=== PATIENT | male | born 1995 | race African-American/Black ===

== ENCOUNTER 2017-05-05 15:31 | Emergency (ER) | payer OTHER ==
[~2017-05-05] VITALS: Ht 177.8 cm; Wt 75.0 kg
[~2017-05-05 15:31] MED LIST: DIAZ5TAB PO
[2017-05-05 15:42] VITALS: BP 146/86
[2017-05-05] MEDS ORDERED: METH4TAB3 PO (16:37)
[2017-05-05] MEDS ORDERED: LIDO20SO16 PO (16:37)
== END 2017-05-05 16:51 | disposition home or self-care (01) ==
LOC: ER 15:32
DX: J02.9 Acute pharyngitis, unspecified (principal); F12.10 Cannabis abuse, uncomplicated
CPT/HCPCS: 87081; 87880; 99284

== ENCOUNTER 2017-09-15 01:22 | Emergency (ER) | payer MEDICAID ==
[~2017-09-15] VITALS: Ht 175.3 cm; Wt 70.0 kg
[~2017-09-15 01:22] MED LIST changes: +LIDO20SO16 PO; +METH4TAB3 PO
[2017-09-15 01:37] VITALS: BP 144/88
[2017-09-15] MEDS ORDERED: LORazepam 1 MG tablet PO ONE (01:45)
== END 2017-09-15 02:03 | disposition home or self-care (01) ==
LOC: ER 01:22
DX: T78.1XXA Other adverse food reactions, not elsewhere classified, initial encounter (principal); F41.9 Anxiety disorder, unspecified; F12.90 Cannabis use, unspecified, uncomplicated; Z79.899 Other long term (current) drug therapy; X58.XXXA Exposure to other specified factors, initial encounter
CPT/HCPCS: 99284

== ENCOUNTER 2018-03-22 03:25 | Emergency (ER) | payer MEDICAID ==
[~2018-03-22] VITALS: Ht 177.8 cm; Wt 76.5 kg
[2018-03-22] VITALS (15 sets, daily range): BP systolic 117–149; BP diastolic 55–89
[2018-03-22] MEDS ORDERED: HYDROcodone/acetaminophen 10/325mg tab PO ONE (03:45)
[2018-03-22] MEDS ORDERED: etomidate 2mg/ml inj. IV ONE (03:55)
[2018-03-22] MEDS ORDERED: propofol 1000mg/100ml bottle 100 ML IV ONE (04:23)
[2018-03-22] MEDS ORDERED: fentaNYL/PF 50MCG/1 ML 2ML syringe IV ONE (05:10)
--- NOTE | 2018-03-22 05:42 | NUR ---
MODERATION SEDATION PERFORMED DOCUMENTED, UPON FIRST ATTEMPT TO SEDATE PATIENT, IT WAS OBSERVED THAT THE IV INFILTRATED IN HIS R AC. NS INFUSION STOPPED AND DISCONNECT. PT HAD NOTICABLE SWELLING TO R BICEP AND REPORTED PAIN. RADIAL PULSES PRESENT, STRONG. PHARMACY CONSULTED ABOUT PROPOFOL INFILTRATED AND SAID IT WAS BENIGN. APPROX 20 MINUTES AFTER NS DRIP WAS STOPPED THE BICEP NO LONGER APPEARED SWOLLEN AND FELT SOFT TO THE TOUCH, PT REPORTED RELIEF OF PAIN. IV INITIATED IN ALTERNATIVE IV SIGHT, PROCEDURE RESTARTED DOCUMENTED. PT WAS LIGHTLY SEDATED BUT CONTINUED TO WAKE UP WHILE ATTEMPTING TO RELOCATE ELBOW. MD UNABLE TO PLACE ELBOW AND THE PROCEDURE WAS STOPPED. MD TO CONSULT WITH ORTHO SURGEON FOR POTENTIAL TRIP TO OR FOR CORRECT PLACEMENT AND FURTHER SEDATION NEEDED.
[2018-03-22] MEDS ORDERED: HYDROmorphone 1 mg/ml syringe IV STA (09:15)
--- NOTE | 2018-03-22 09:20 | NUR ---
Patient C/O of increased pain. Informed ER MD.
--- NOTE | 2018-03-22 09:48 | NUR ---
Call to patient mother Marcia for update and left message.
[2018-03-22] MEDS ORDERED: midazolam 2 mg/2 ml injection ONE (12:21)
[2018-03-22] MEDS ORDERED: dexamethasone sod phosphate 4mg/ml inj. ONE (12:22)
[2018-03-22] MEDS ORDERED: propofol inj 20 ML IV ONE (12:22)
[2018-03-22] MEDS ORDERED: LIDOcaine 2% (20mg/ml) 5ml vial ONE (12:22)
[2018-03-22] MEDS ORDERED: meperidine/PF 50mg/ml syringe ONE (12:22)
[2018-03-22] MEDS ORDERED: ondansetron/PF 4mg/2ml inj ONE (12:22)
[2018-03-22] MEDS ORDERED: ringers solution, lacted 1,000 ML IV SCH (12:32)
[2018-03-22] MEDS ORDERED: fentaNYL/PF 50MCG/1 ML 2ML syringe IV PRN ×2 (12:35)
[2018-03-22] MEDS ORDERED: hydrALAZINE 20mg/ml inj. IV PRN (12:35)
[2018-03-22] MEDS ORDERED: ondansetron/PF 4mg/2ml inj IV PRN (12:35)
[2018-03-22] MEDS ORDERED: morphine 4 MG/ML inj SYRINge IV PRN ×2 (12:35)
[2018-03-22] MEDS ORDERED: labetalol 20mg/4ml (5mg/ml) syringe IV PRN (12:35)
[2018-03-22] MEDS ORDERED: sevoflurane 250ml liquid IH ONE (12:38)
--- NOTE | 2018-03-22 13:01 | NUR ---
Received from OR via [facility] , accompanied by Anesthesiologist DR MONTOYA and report given by Anesthesiolgist. PT ASLEEP. SLING TO LEFT ARM, CAST TO LEFT ARM CDI. FINGERS TO LEFT HAND HAVE GOOD CSM. IV TO RIGHT FOOT PATENT, INFUSING LR.
[2018-03-22] MEDS ORDERED: naloxone 0.4 mg/ml inj ONE (13:52)
--- NOTE | 2018-03-22 14:01 | NUR ---
PT REC'D TOTAL OF 0.2MG OF NARCAN IVP. PT NOW AWAKE, ORAL AIRWAY OUT. VSS. PT DENIES NAUSEA AND PAIN. ALERT AND ORIENTED.
--- NOTE | 2018-03-22 15:01 | NUR ---
pt was transferred to [facility] via [facility], pt alert and oriented when awake. Falls asleep often. Denies pain and nausea. Ice to left upper arm, sling in place, splint remains CDI. belonging bag x 2 below rmcdonough and to pt room upon transfer. Report given to Mary Ann who assumed care of pt. Mom w/ pt upon transfer to room.
--- NOTE | 2018-03-22 15:15 | NUR ---
PATIENT ARRIVED TO ACCE UNIT AWAKE, ALERT, ORIENTED X4, CALM, AND DENIES ANY PAIN OR DISCOMFORT AT THIS TIME. LEFT ARM SLING IN PLACE AND PATIENT HOOKED UP TO BEDSIDE MONITOR. VITAL SIGNS STABLE. PATIENT SAYS HE IS HUNGRY SO REGULAR TRAY ORDERED. PATIENT'S FAMILY MEMBER AT BEDSIDE. WILL CONTINUE TO MONITOR.
[2018-03-22] MEDS ORDERED: NO HOME MEDS (17:38)
--- NOTE | 2018-03-22 18:00 | NUR ---
Patient in room . I have received report from MERLE Reese and had the opportunity to ask questions and assume patient care.
--- NOTE | 2018-03-22 18:40 | NUR ---
Patient discharged home with his mother. All discharge instructions given to the patient and all questions answered until the patient stated he had understanding and no other questions. Patient was in a stable condition when he was discharged. Patient left the floor in a wheelchair.
== END 2018-03-22 19:35 | disposition home or self-care (01) ==
LOC: ER 03:26
DX: S53.195A Other dislocation of left ulnohumeral joint, initial encounter (principal); F12.90 Cannabis use, unspecified, uncomplicated; W19.XXXA Unspecified fall, initial encounter; Y93.89 Activity, other specified; Y92.89 Other specified places as the place of occurrence of the external cause; Y99.9 Unspecified external cause status
CPT/HCPCS: 24605; 73070; 73090; 76000; 94760; 96374; 96375; 99285; J1100; J1170; J2001; J2175; J2250; J2270; J2310; J2405; J2704; J3010; J7120; A4565; A6449; A7000; J3490

== ENCOUNTER 2019-01-12 12:20 | Emergency (ER) | payer MEDICAID ==
[~2019-01-12] VITALS: Ht 177.8 cm; Wt 70.0 kg
[~2019-01-12 12:20] MED LIST changes: -DIAZ5TAB PO; -LIDO20SO16 PO; -METH4TAB3 PO; +NO HOME MEDS
[2019-01-12 13:39] LABS: BASOPHILS % (AUTO) 0.5 % (0-1); EOSINOPHILS # (AUTO) 0.4 X10'3 (0-0.9); EOSINOPHILS % (AUTO) 5.2 % (0-6); HEMATOCRIT 40.2 % (42.0-52.0); HEMOGLOBIN 13.2 g/dl (14.0-17.9); LYMPHOCYTES # (AUTO) 1.7 X10'3 (1.1-4.8); LYMPHOCYTES % (AUTO) 20.4 % (21-51); MEAN CORPUSCULAR HEMOGLOBIN 26.3 PG (27.0-31.0); MEAN CORPUSCULAR VOLUME 79.6 FL (78-98); MEAN PLATELET VOLUME 7.3 FL (7.4-10.4); MONOCYTES # (AUTO) 0.7 X10'3 (0-0.9); MONOCYTES % (AUTO) 8.3 % (2-12); NEUTROPHILS # (AUTO) 5.3 X10'3 (1.8-7.7); NEUTROPHILS % (AUTO) 65.6 % (42-75); PLATELET COUNT 276 X10'3 (140-440); RED BLOOD COUNT 5.05 X10'6 (4.70-6.10); RED CELL DISTRIBUTION WIDTH 19.7 % (11.5-14.5); WHITE BLOOD COUNT 8.1 X10'3 (4.5-11.0)
[2019-01-12 13:52] LABS: ANION GAP 10 (8-16); BLOOD UREA NITROGEN 9 MG/DL (7-18); CHLORIDE 103 MMOL/L (99-107); CREATININE 0.61 MG/DL (0.60-1.10); GLUCOSE 111 MG/DL (70-104); POTASSIUM 3.4 MMOL/L (3.5-5.1); SODIUM 140 MMOL/L (135-145)
[2019-01-12 13:53] LABS: ALANINE AMINOTRANSFERASE 19 U/L (12-78); ALBUMIN 3.4 G/DL (3.4-5.0); ALBUMIN/GLOBULIN RATIO 0.9 (1.1-1.5); ALKALINE PHOSPHATASE 92 IU/L (46-116); ASPARTATE AMINO TRANSFERASE 14 U/L (10-37); BILIRUBIN,TOTAL 0.2 MG/DL (0.1-1.0); BUN/CREATININE RATIO 14.8 (5.4-32.0); CALCIUM 9.2 MG/DL (8.5-10.1); TOTAL PROTEIN 7.2 G/DL (6.4-8.2); eGFR > 90 ML/MIN
[2019-01-12 13:56] LABS: TROPONIN I < 0.04 NG/ML (0.0-0.05)
[2019-01-12 13:58] LABS: PLATELET ESTIMATE NORMAL
[2019-01-12 13:59] LABS: ANISOCYTOSIS 2+; HYPOCHROMASIA 1+; MICROCYTOSIS 1+
[2019-01-12] MEDS ORDERED: morphine 2 MG/ML inj. syringe IV ONE (15:05)
[2019-01-12] MEDS ORDERED: ibuprofen 200mg tablet PO ONE (16:40)
[2019-01-12 16:48] VITALS: BP 154/76
== END 2019-01-12 16:51 | disposition home or self-care (01) ==
LOC: ER 12:20
DX: R07.89 Other chest pain (principal); F12.90 Cannabis use, unspecified, uncomplicated
CPT/HCPCS: 36415; 71045; 71275; 80053; 84484; 85025; 93005; 96374; 99284; J2270

== ENCOUNTER 2019-02-01 13:23 | Emergency (ER) | payer MEDICAID ==
[~2019-02-01] VITALS: Ht 177.8 cm; Wt 68.0 kg
[2019-02-01] MEDS ORDERED: ipratropium/albuterol 3ml nebule NEB ONE (14:55)
[2019-02-01 16:58] VITALS: BP 118/64
== END 2019-02-02 14:42 | disposition home or self-care (01) ==
LOC: ER 13:23
DX: J96.10 Chronic respiratory failure, unspecified whether with hypoxia or hypercapnia (principal); G82.50 Quadriplegia, unspecified; F41.9 Anxiety disorder, unspecified; F10.99 Alcohol use, unspecified with unspecified alcohol-induced disorder; F12.90 Cannabis use, unspecified, uncomplicated; Y90.9 Presence of alcohol in blood, level not specified
CPT/HCPCS: 71045; 94640; 94760; 99284

== ENCOUNTER 2019-10-30 00:35 | Emergency (ER) | payer MEDICAID ==
[~2019-10-30] VITALS: Ht 177.8 cm; Wt 63.6 kg
[2019-10-30 00:57] LABS: BASOPHILS # (AUTO) 0.1 X10'3 (0-0.2); BASOPHILS % (AUTO) 0.9 % (0-1); EOSINOPHILS # (AUTO) 0.5 X10'3 (0-0.9); EOSINOPHILS % (AUTO) 7.3 % (0-6); HEMATOCRIT 43.6 % (42.0-52.0); HEMOGLOBIN 14.5 g/dl (14.0-17.9); LYMPHOCYTES # (AUTO) 2.1 X10'3 (1.1-4.8); LYMPHOCYTES % (AUTO) 29.5 % (21-51); MEAN CORPUSCULAR HEMOGLOBIN 31.1 PG (27.0-31.0); MEAN CORPUSCULAR HGB CONC 33.3 g/dL (33.0-36.5); MEAN CORPUSCULAR VOLUME 93.4 FL (78-98); MEAN PLATELET VOLUME 7.5 FL (7.4-10.4); MONOCYTES # (AUTO) 0.7 X10'3 (0-0.9); MONOCYTES % (AUTO) 9.8 % (2-12); NEUTROPHILS # (AUTO) 3.7 X10'3 (1.8-7.7); NEUTROPHILS % (AUTO) 52.5 % (42-75); PLATELET COUNT 266 X10'3 (140-440); RED BLOOD COUNT 4.67 X10'6 (4.70-6.10); RED CELL DISTRIBUTION WIDTH 13.7 % (11.5-14.5); WHITE BLOOD COUNT 7.1 X10'3 (4.5-11.0)
[2019-10-30 01:21] LABS: ALANINE AMINOTRANSFERASE 21 U/L (12-78); ALBUMIN 3.7 G/DL (3.4-5.0); ALKALINE PHOSPHATASE 83 IU/L (46-116); ANION GAP 6 (8-16); ASPARTATE AMINO TRANSFERASE 14 U/L (10-37); BILIRUBIN,TOTAL 0.3 MG/DL (0.1-1.0); BLOOD UREA NITROGEN 9 MG/DL (7-18); BUN/CREATININE RATIO 10.7 (5.4-32.0); CALCIUM 9.2 MG/DL (8.5-10.1); CHLORIDE 104 MMOL/L (99-107); CREATININE 0.84 MG/DL (0.60-1.10); GLUCOSE 86 MG/DL (70-104); POTASSIUM 3.9 MMOL/L (3.5-5.1); SODIUM 138 MMOL/L (135-145); TOTAL CARBON DIOXIDE 27.7 MMOL/L (24-32); TOTAL PROTEIN 7.3 G/DL (6.4-8.2); eGFR > 90 ML/MIN
[2019-10-30 03:31] VITALS: BP 106/68
== END 2019-10-30 03:36 | disposition home or self-care (01) ==
LOC: ER 00:36
DX: R07.89 Other chest pain (principal); F41.9 Anxiety disorder, unspecified; F12.90 Cannabis use, unspecified, uncomplicated; Z88.5 Allergy status to narcotic agent
CPT/HCPCS: 36415; 71045; 80053; 83880; 84484; 85025; 93005; 99285

== ENCOUNTER 2019-11-23 23:56 | Emergency (ER) | payer MEDICAID ==
[~2019-11-23] VITALS: Ht 177.8 cm; Wt 65.0 kg
[2019-11-24] MEDS ORDERED: aspirin 81mg tab.chew PO ONE (00:15)
[2019-11-24] MEDS ORDERED: nitroGLYCERIN 0.4mg SUBLingual tab SL PRN (00:15)
[2019-11-24 00:23] LABS: BASOPHILS % (AUTO) 0.6 % (0-1); EOSINOPHILS # (AUTO) 0.5 X10'3 (0-0.9); EOSINOPHILS % (AUTO) 9.8 % (0-6); HEMATOCRIT 43.6 % (42.0-52.0); HEMOGLOBIN 14.7 g/dl (14.0-17.9); LYMPHOCYTES % (AUTO) 35.9 % (21-51); MEAN CORPUSCULAR HEMOGLOBIN 31.4 PG (27.0-31.0); MEAN CORPUSCULAR HGB CONC 33.8 g/dL (33.0-36.5); MEAN PLATELET VOLUME 7.6 FL (7.4-10.4); MONOCYTES # (AUTO) 0.4 X10'3 (0-0.9); MONOCYTES % (AUTO) 7.6 % (2-12); NEUTROPHILS # (AUTO) 2.5 X10'3 (1.8-7.7); NEUTROPHILS % (AUTO) 46.1 % (42-75); PLATELET COUNT 213 X10'3 (140-440); RED BLOOD COUNT 4.68 X10'6 (4.70-6.10); RED CELL DISTRIBUTION WIDTH 13.9 % (11.5-14.5); WHITE BLOOD COUNT 5.5 X10'3 (4.5-11.0)
[2019-11-24 00:33] LABS: ALANINE AMINOTRANSFERASE 17 U/L (12-78); ALBUMIN 3.8 G/DL (3.4-5.0); ALBUMIN/GLOBULIN RATIO 1.1 (1.1-1.5); ALKALINE PHOSPHATASE 82 IU/L (46-116); ANION GAP 5 (8-16); ASPARTATE AMINO TRANSFERASE 16 U/L (10-37); BILIRUBIN,TOTAL 0.4 MG/DL (0.1-1.0); BLOOD UREA NITROGEN 8 MG/DL (7-18); BUN/CREATININE RATIO 10.4 (5.4-32.0); CALCIUM 9.6 MG/DL (8.5-10.1); CHLORIDE 103 MMOL/L (99-107); CREATININE 0.77 MG/DL (0.60-1.10); GLUCOSE 91 MG/DL (70-104); POTASSIUM 3.9 MMOL/L (3.5-5.1); SODIUM 138 MMOL/L (135-145); TOTAL CARBON DIOXIDE 30.5 MMOL/L (24-32); TOTAL PROTEIN 7.2 G/DL (6.4-8.2); eGFR > 90 ML/MIN
[2019-11-24 01:19] LABS: D-DIMER 0.68 MG/L FEU (0-0.50)
[2019-11-24] MEDS ORDERED: iohexol 350MG/ML 100ml bottle IV ONE (01:46)
--- NOTE | 2019-11-24 06:27 | NUR ---
received patient on bed awake,no reported discomfort.Awaiting transport.
--- NOTE | 2019-11-24 08:55 | NUR ---
[facility] still unable to transport patient home.We will try and call them again later.
--- NOTE | 2019-11-24 09:45 | NUR ---
patient reports he is wet and that he needed to be turned,RN then offered to change and turn him.Patient refused to be changed multiple times.
[2019-11-24] MEDS ORDERED: ketorolac tromethamine 15mg/ml inj. IV ONE (10:00)
--- NOTE | 2019-11-24 10:15 | NUR ---
requested pain med prior to dc.Spoke to Dr. jameson ordered toradol.
--- NOTE | 2019-11-24 10:15 | NUR ---
patient requested multiple medications he takes at home and that "he cannot wait until [facility] takes him home.Spoke to Issa Gill again,agreed to give meds as requested by patient.
--- NOTE | 2019-11-24 10:15 | NUR ---
discussed risk of skin breakdown if left on a wet sheet,patient finally agreed to be changed.
--- NOTE | 2019-11-24 10:21 | NUR ---
Awating for [facility] to transport patient home.
[2019-11-24] MEDS ORDERED: bisacodyl 5mg tablet.DR PO STA (10:42)
[2019-11-24] MEDS ORDERED: gabapentin 100mg capsule PO STA (10:42)
[2019-11-24] MEDS ORDERED: baclofen 10mg tablet PO STA (10:42)
[2019-11-24] MEDS ORDERED: sennosides/docusate sodium tablet PO STA (10:42)
--- NOTE | 2019-11-24 10:58 | NUR ---
[facility] at bedside.
[2019-11-24 11:23] VITALS: BP 96/66
== END 2019-11-24 11:26 | disposition home or self-care (01) ==
LOC: ER 23:56
DX: R00.1 Bradycardia, unspecified (principal); R07.89 Other chest pain; F41.9 Anxiety disorder, unspecified; Z72.89 Other problems related to lifestyle; F12.90 Cannabis use, unspecified, uncomplicated; Z88.8 Allergy status to other drugs, medicaments and biological substances
CPT/HCPCS: 36415; 71045; 71275; 80053; 83880; 84484; 85025; 85379; 93005; 96374; 99285; J1885; Q9967

== ENCOUNTER 2020-03-26 19:31 | Emergency (ER) | payer MEDICAID ==
[~2020-03-26] VITALS: Ht 177.8 cm; Wt 70.5 kg
[2020-03-26] MEDS ORDERED: HYDR-3686 PO (20:17)
[2020-03-26] MEDS ORDERED: SENN-263 PO (20:17)
[2020-03-26] MEDS ORDERED: DOCU-338 PO (20:17)
[2020-03-26] MEDS ORDERED: BACL20TA7 PO (20:17)
[2020-03-26] MEDS ORDERED: MIDO10TA PO (20:17)
[2020-03-26] MEDS ORDERED: CHOL100046 PO (20:17)
[2020-03-26] MEDS ORDERED: GABA-530 PO (20:17)
[2020-03-26] MEDS ORDERED: CALC-1276 PO (20:17)
[2020-03-26] MEDS ORDERED: acetaminophen 325mg tablet PO ONE (20:45)
[2020-03-26] MEDS ORDERED: ketorolac trometh. 30mg/ml inj. IM ONE (20:45)
[2020-03-26] MEDS ORDERED: ALBE200T2 PO (21:41)
--- NOTE | 2020-03-26 21:57 | NUR ---
pt turned, pillows placed for support, assisted with urinal, resting comfortably awaiting [facility] transport home.
[2020-03-27] MEDS ORDERED: HYDROcodone/acetaminophen 5mg/325mg tablet PO ONE (02:40)
[2020-03-27] MEDS ORDERED: ondansetron 4mg rapidly disintigrating tab PO ONE (02:40)
--- NOTE | 2020-03-27 05:06 | NUR ---
PT RESTING IN BED COMFORTABLY
[2020-03-27 05:21] VITALS: BP 106/54
== END 2020-03-27 05:25 | disposition home or self-care (01) ==
LOC: ER 19:31
DX: K62.89 Other specified diseases of anus and rectum (principal); K62.5 Hemorrhage of anus and rectum; R11.0 Nausea; I10 Essential (primary) hypertension; F12.90 Cannabis use, unspecified, uncomplicated; Z72.89 Other problems related to lifestyle; Z88.8 Allergy status to other drugs, medicaments and biological substances; Z79.899 Other long term (current) drug therapy
CPT/HCPCS: 96372; 99284; J1885

== ENCOUNTER 2020-03-28 20:21 | Emergency (ER) | payer MEDICAID ==
[~2020-03-28] VITALS: Ht 180.3 cm; Wt 75.0 kg
[~2020-03-28 20:21] MED LIST changes: +ALBE200T2 PO; +BACL20TA7 PO; +CALC-1276 PO; +CHOL100046 PO; +DOCU-338 PO; +GABA-530 PO; +HYDR-3686 PO; +MIDO10TA PO; -NO HOME MEDS; +SENN-263 PO
--- NOTE | 2020-03-28 20:42 | NUR ---
DR. BURNETT AT BEDSIDE VERBALIZED TO SURGERY TEACHER NOT TO DO WORK UP AND TO STAND BY FOR ORDERS IF NECESSARY, PATIENT IS CURRENTLY BEING MONITORED
[2020-03-28] MEDS ORDERED: LORazepam 1 MG tablet PO ONE (20:50)
--- NOTE | 2020-03-28 21:14 | NUR ---
PATIENT YELLING AT STAFF. REMINDED PATIENT THAT HE IS AWAITING TRANSPORTATION
--- NOTE | 2020-03-28 21:33 | NUR ---
PATIENT CONTINUOSLY SCREAMING OUT FOR A NURSE WHEN NURSE ENTERS ROOM PATIENT STAING MY FEET THEY ITCH I WANT THEM ITCHED, PATIENT IS CAPABILIE OF ITCHING FEET AND WAS POLITLY ASKED IF PATIENT COULD USE CALL [facility] INSTEAD OF CALLING OUT, OF NOW IT IS WORKING WILL CONTINUE TO MONITOR ED CN AND MD AWARE
--- NOTE | 2020-03-28 22:49 | NUR ---
PATIENT IN ROOM SUPINE RR EVEN UN LABORED NO OBSERVABLE S/S OF ACUTE STRESS AT THIS TIME PATIENT IS AOX4 AND IS STILL UN COOPERATIVE.
[2020-03-28 23:03] VITALS: BP 110/42
== END 2020-03-28 23:09 | disposition home or self-care (01) ==
LOC: ER 20:22
DX: R19.5 Other fecal abnormalities (principal); G82.20 Paraplegia, unspecified; F12.90 Cannabis use, unspecified, uncomplicated; Z72.89 Other problems related to lifestyle; Z79.899 Other long term (current) drug therapy
CPT/HCPCS: 93005; 99283

== ENCOUNTER 2020-03-31 01:50 | Emergency (ER) | payer MEDICAID ==
[~2020-03-31] VITALS: Ht 177.8 cm; Wt 57.3 kg
[2020-03-31] MEDS ORDERED: ALBE200T5 PEG (02:07)
[2020-03-31] MEDS ORDERED: ketorolac tromethamine 15mg/ml inj. IM ONE (02:50)
--- NOTE | 2020-03-31 03:24 | NUR ---
[facility] HERE FOR DC TRANSPORT.
[2020-03-31 03:31] VITALS: BP 97/48
== END 2020-03-31 03:33 | disposition home or self-care (01) ==
LOC: ER 01:51
DX: T63.301A Toxic effect of unspecified spider venom, accidental (unintentional), initial encounter (principal); M79.675 Pain in left toe(s); M79.674 Pain in right toe(s); B80 Enterobiasis; G82.50 Quadriplegia, unspecified; F41.9 Anxiety disorder, unspecified; F12.90 Cannabis use, unspecified, uncomplicated; Z72.89 Other problems related to lifestyle; Z88.8 Allergy status to other drugs, medicaments and biological substances; Z79.2 Long term (current) use of antibiotics; Z79.899 Other long term (current) drug therapy; Y92.89 Other specified places as the place of occurrence of the external cause
CPT/HCPCS: 96372; 99283; J1885

== ENCOUNTER 2020-04-11 03:56 | Emergency (ER) | payer MEDICAID ==
[~2020-04-11] VITALS: Ht 177.8 cm; Wt 68.2 kg
[~2020-04-11 03:56] MED LIST changes: +ALBE200T5 PEG
[2020-04-11 04:01] VITALS: BP 123/83
--- NOTE | 2020-04-11 04:13 | NUR ---
PT REQUESTS FOR ME TO ASKE THE MD IF HE CAN GET AN XRAY "OR SOMETHING OF MY ABDOMOEN" THIS PAIN "FEELS LIKE IT IS IN MY RECTAL MUSCLES...DEEP IN MY ABDOMEN". PT STATES " I DON'T UNDERSTAND WHY THE DOCTOR IS NOT TAKING ME SERIOUSLY...THIS IS SO PAINFUL". I TOLD PT I WOUDL TELL THE MD HIS REQUESTS. PT IS POLITE AND COOPERATIVE WITH CARE. STABLE VS.
--- NOTE | 2020-04-11 04:41 | NUR ---
PT REPORTS HE IS HAVING ISSUES WITH PARASITES AND HAS A PERSCRIPTION FOR MEDICATION BUT CANNOT AFFORD IT SO HE IS DOING A NATURAL CLENSE AND EATING A SPECIAL PROTEIN AND VEGITABLE DIET. HIS STOOL HAS BEEN "STRINGY AND NOT REGULAR". HE STATES HE WOULD BE WILLING TO HAVE A COLONOSCOPY. I UPDATED HIM THAT HE IS PREPARED FOR DISCHARGE AND THE MD HAS DEEMED THAT PT NEEDS NO FURTHER TESTS OR LABS HE IS NOT EMERGENT AND WILL NEED TO F/U WITH HIS PCP. PT REPORTS HE IS HAVING TROUBLE GETTING AN APPT WITH HIS PCP. HE REPORTS HE IS FRUSTRATED THAT THE MD IS NOT DOINIG ANYTHING FURTHER. PT ASKED HOW HE WILL TRANSPORT HOME. HE REPORTS HE NEEDS TRANSPORT SERVICE AND CAN USE ONLY HIS SPECIAL WHEELCHAIR IS STTING UPRIGHT. [facility] CALLED AND THEY REORTS DUE TO A RECENT INCIDENT, PT HAS BEEN BANNED FROM THEIR TRANSPORTATION SERVICES. COMMERCIAL UNDERWRITERGIANFRANCO UPDATED.
--- NOTE | 2020-04-11 05:02 | NUR ---
MOTHER, DEE, CALLED AND REPORTS THAT THE PT REQUIRES A GURNEY TO TRANSPORT HOME.. HE DOES HAVE AN ELECTRIC WC, BUT IS WEIGHS A FEW HUNDRED POUNDS AND SHE DOES NOT HAVE A VEHICLE TO TRANSPORT HIM IN. STATES THEY HAVE USED A MEDICAL TRANSPORT SERVICE DURING THE DAYTIME IN THE PAST FOR HIM TO GO TO APPTS AND SUCH. TOOL CRIB LEAD, GIANFRANCO MENDIOLA. CALL PLACED TO JAMES. PT UPDATED.
--- NOTE | 2020-04-11 08:00 | NUR ---
RESTING ON COLBY DAS. AWAITING TRANSPORTATION HOME VIA [facility]. VOIDED PER URINAL. CALL LIGHT IN REACH.
[2020-04-11] MEDS ORDERED: sennosides 8.6mg tablet PO ONE (09:45)
[2020-04-11] MEDS ORDERED: docusate sod 100mg capsule PO ONE (09:45)
[2020-04-11] MEDS: gabapentin 100mg capsule PO SCH ×2 (10:03→13:00)
[2020-04-11] MEDS: baclofen 10mg tablet PO SCH ×2 (10:04→14:10)
--- NOTE | 2020-04-11 10:41 | NUR ---
PATIENT IS WAITING FOR TRANSPORTATION HOME PER [facility]. MORNING MEDICATIONS WERE ADMINISTERED. REPOSITIONED ON [facility]. DRANK 4 OZ CRANBERRY JUICE AND RETAINED.
--- NOTE | 2020-04-11 12:42 | NUR ---
REPOSITIONED FOR COMFORT. INCONTINENT OF STOOL. CLEANED UP AND FRESH PAD PUT UNDER PATIENT. AWAITING TRANSPORTATION TO HOME.
== END 2020-04-11 14:13 | disposition home or self-care (01) ==
LOC: ER 03:57
DX: K62.89 Other specified diseases of anus and rectum (principal); R19.7 Diarrhea, unspecified; M79.661 Pain in right lower leg; M79.662 Pain in left lower leg; K59.00 Constipation, unspecified; F12.90 Cannabis use, unspecified, uncomplicated; Z72.89 Other problems related to lifestyle; Z79.899 Other long term (current) drug therapy
CPT/HCPCS: 99284

== ENCOUNTER 2020-10-20 03:58 | Emergency (ER) | payer MEDICAID ==
[~2020-10-20] VITALS: Ht 180.3 cm; Wt 68.1 kg
[~2020-10-20 03:58] MED LIST changes: +ALBE200T10 PEG; +ALBE200T14 PO; -ALBE200T2 PO; -ALBE200T5 PEG
[2020-10-20 04:18] VITALS: BP 136/80
[2020-10-20] MEDS ORDERED: ondansetron/PF 4mg/2ml inj IV ONE (05:10)
[2020-10-20] MEDS ORDERED: morphine 4 MG/ML inj SYRINge IV ONE (05:10)
[2020-10-20] MEDS ORDERED: normal saline 1000ML IV soln IVB ONE (05:15)
--- NOTE | 2020-10-20 05:49 | NUR ---
patient given meds as ordered, see mar. patient and md has lengthy conversation. MD made patient aware that nothing is wrong except for some constipation. patient believes he has things crawling in his eyes and penis. Keeps talking in circles. hard to redirect.
[2020-10-20 06:00] LABS: ALANINE AMINOTRANSFERASE 26 U/L (12-78); ALBUMIN/GLOBULIN RATIO 1.1 (1.1-1.5); ALKALINE PHOSPHATASE 72 IU/L (46-116); ANION GAP 14 (8-16); ASPARTATE AMINO TRANSFERASE 17 U/L (10-37); BILIRUBIN,TOTAL 0.5 MG/DL (0.1-1.0); BLOOD UREA NITROGEN 14 MG/DL (7-18); BUN/CREATININE RATIO 18.9 (5.4-32.0); CALCIUM 9.6 MG/DL (8.5-10.1); CHLORIDE 104 MMOL/L (99-107); CREATININE 0.74 MG/DL (0.60-1.10); GLUCOSE 90 MG/DL (70-104); MAGNESIUM 1.7 MG/DL (1.5-2.4); POTASSIUM 3.7 MMOL/L (3.5-5.1); SODIUM 142 MMOL/L (135-145); TOTAL CARBON DIOXIDE 24.3 MMOL/L (24-32); TOTAL PROTEIN 7.6 G/DL (6.4-8.2); eGFR > 90 ML/MIN
[2020-10-20 06:03] LABS: URINE AMPHETAMINE SCREEN NEGATIVE (Neg); URINE BARBITUATE SCREEN NEGATIVE (Neg); URINE BENZODIAZEPINES SCREEN NEGATIVE (Neg); URINE CANNABINOID SCREEN POSITIVE (Neg); URINE COCAINE SCREEN NEGATIVE (Neg); URINE METHADONE SCREEN NEGATIVE (Neg); URINE OPIATE SCREEN POSITIVE (Neg); URINE PHENCYCLIDINE SCREEN NEGATIVE (Neg)
[2020-10-20 06:08] LABS: BASOPHILS # (AUTO) 0.1 X10'3 (0-0.2); EOSINOPHILS # (AUTO) 0.3 X10'3 (0-0.9); EOSINOPHILS % (AUTO) 5.2 % (0-6); HEMOGLOBIN 15.1 g/dl (14.0-17.9); LYMPHOCYTES # (AUTO) 1.7 X10'3 (1.1-4.8); LYMPHOCYTES % (AUTO) 31.1 % (21-51); MEAN CORPUSCULAR HEMOGLOBIN 30.9 PG (27.0-31.0); MEAN CORPUSCULAR HGB CONC 34.3 g/dL (33.0-36.5); MEAN CORPUSCULAR VOLUME 90.2 FL (78-98); MEAN PLATELET VOLUME 8.8 FL (7.4-10.4); MONOCYTES # (AUTO) 0.5 X10'3 (0-0.9); MONOCYTES % (AUTO) 8.8 % (2-12); NEUTROPHILS # (AUTO) 2.9 X10'3 (1.8-7.7); NEUTROPHILS % (AUTO) 53.9 % (42-75); PLATELET COUNT 204 X10'3 (140-440); RED BLOOD COUNT 4.88 X10'6 (4.70-6.10); RED CELL DISTRIBUTION WIDTH 13.4 % (11.5-14.5); WHITE BLOOD COUNT 5.4 X10'3 (4.5-11.0)
[2020-10-20 06:33] LABS: C-REACTIVE PROTEIN < 0.05 MG/DL (0.0-0.5)
[2020-10-20 06:34] LABS: CLARITY,URINE CLOUDY (Clear); GLUCOSE, URINE NEGATIVE (Neg); KETONES,URINE 15 mg/dl (Neg); LEUKOCYTE ESTERASE ,URINE NEGATIVE (Neg); NITRITES, URINE NEGATIVE (Neg); OCCULT BLOOD,URINE NEGATIVE (Neg); PH,URINE 7.5 (4.8-8.0); PROTEIN,URINE NEGATIVE (Neg); UROBILINOGEN,URINE 0.2 E.U/dL (0.2-1.0)
[2020-10-20 06:47] LABS: COLOR,URINE YELLOW (Yellow); UA COLLECTION TYPE URINAL
[2020-10-20 06:48] LABS: AMORPHOUS PHOSPHATES 3+; BACTERIA,URINE NONE SEEN /HPF (Neg); MUCUS STRANDS FEW /LPF (Neg); RBC,URINE NONE SEEN /HPF (0-2); SQUAMOUS EPITHELIAL CELL,UR NONE SEEN /LPF (FEW); WBC,URINE NONE SEEN /HPF (0-4)
[2020-10-20] MEDS ORDERED: ketorolac tromethamine 15mg/ml inj. IV ONE (07:10)
[2020-10-20] MEDS ORDERED: acetaminophen 325mg tablet PO ONE (07:10)
--- NOTE | 2020-10-20 07:34 | NUR ---
UNABLE TO CONTACT MOTHER PER PHONE. PATIENT IS ATTEMPTING TO CONTACT PER TEXT MESSAGING. RESTING ON GURNEY, IN HALLWAY. DISCHARGE ARRANGEMENTS PENDING ACCEPTANCE FROM MOTHER.
== END 2020-10-20 13:17 | disposition home or self-care (01) ==
LOC: ER 03:58
DX: R10.84 Generalized abdominal pain (principal); K59.00 Constipation, unspecified; F22 Delusional disorders; G82.50 Quadriplegia, unspecified; H57.13 Ocular pain, bilateral; R11.0 Nausea; F41.9 Anxiety disorder, unspecified; F12.90 Cannabis use, unspecified, uncomplicated; Z72.89 Other problems related to lifestyle; Z91.010 Allergy to peanuts; Z79.899 Other long term (current) drug therapy
CPT/HCPCS: 36415; 71045; 74018; 80053; 80305; 81001; 83605; 83735; 84145; 85025; 86140; 87040; 96361; 96374; 96375; 99284; J1885; J2270; J2405; J7030

== ENCOUNTER 2020-12-06 14:09 | Outpatient (CLI) | payer MEDICAID | END 2020-12-06 23:59 | disposition home or self-care (01) | LOC: RAD 14:09 | PROVIDERS: ATTEND Family Medicine | DX: K76.0 Fatty (change of) liver, not elsewhere classified (principal) | CPT/HCPCS: 76700; 76870; 93976 ==